=== PATIENT | female | born 1975 | race Caucasian/White ===

== ENCOUNTER 2019-08-23 21:41 | Inpatient (IN) | payer OTHER, SELFPAY ==
--- NOTE | ~2019-08-23 | XR_ITS ---
EXAMINATION: XR chest 1V portable 08/23/2019 22:09 INDICATION: Altered mental status. Overdose. PROCEDURE: 2 view chest COMPARISON: No prior studies for comparison. FINDINGS: The lungs are clear. The cardiomediastinal silhouette is within normal limits. There are no pleural effusions. There is no pneumothorax suspected. IMPRESSION: 1: NO ACUTE CARDIOPULMONARY DISEASE. Reviewed, dictated and finalized at location A. RITY ALARM TECHNICIAN
[2019-08-23 21:40] VITALS: BP 138/66; PULSE 108; RESP 25; O2SAT 100
--- NOTE | 2019-08-23 21:43 | ED.OVERDOSE ---
HPI - Overdose General Chief Complaint: Overdose Stated Complaint: od Time Seen by Provider: 08/23/19 21:45 Source: EMS Mode of arrival: EMS Limitations: clinical condition History of Present Illness HPI Narrative: A 44 y/o female presents to the ED with c/o overdose. Per EMS, pt took Tylenol PM, Benadryl, and Melatonin tonight with EtOH to try and kill herself. EMS adds that she is going through a divorce and texted her tonight that it will all be over soon. EMS adds that the contacted them. On arrival to the scene, the patient told EMS that she bought a new bottle of Tylenol PM today, and EMS counted 32 remaining pills in a bottle of 100. En route EMS administered Narcan with no relief. According to EMS, the pt is lethargic in the ED and is not as alert compared to when EMS arrived to the patient's home. A complete HPI is limited due to the patient's clinical condition. MD complaint: intentional overdose Onset (ago): hour(s) (Tonight) Intent: suicide attempt How Overdose Was Discovered: called family/friend Context: Intentional Overdose: relationship problems Treatments Prior to Arrival: narcan Review of Systems Review of Systems: Narrative: A complete ROS is limited due to patient's clinical condition. All systems reviewed & are unremarkable except as noted in HPI and below Constitutional: Constitutional: Reports other (Lethargic) Psychiatric: Psychiatric: Reports other (Suicide attempt) [facility] Past Medical History Medical History (Updated 08/23/19 @ 23:53 by Edinson Romero DO) Medical history unknown Surgical History Surgical History (Updated 08/23/19 @ 21:55 by Mabel Corral) Surgical history unknown Social History Social History (Updated 08/23/19 @ 21:55 by Mabel Corral) Smoking status: Unknown if ever smoked Gender identity (if verbalized by the patient): Female Exam Narrative: Exam Narrative: APPEARANCE: Sleeping in bed but will awaken to verbal stimuli, will answer a few questions and fall back asleep EYES: PERRL HEENT: Normocephalic, atraumatic, OMM RESPIRATORY: No respiratory distress Clear to auscultation bilaterally with no rhonchi wheezing or rales. CARDIOVASCULAR: Tachycardic and regular without murmurs rubs or gallops. ABDOMINAL: Soft, nontender, nondistended, no rebound or guarding MUSCULOSKELETAl: Moves all extremities. No clubbing, cyanosis or edema. NEURO: Awake and alert x 3. Following commands, speech normal, no focal deficits SKIN:: Warm, dry. No rashes lesions or abrasions PSYCHIATRIC: Flat affect, positive suicidal ideation Course Course Emergency Course: After initial evaluation discussed with poison control. Recommend holding Acetadote until initial Tylenol level After initial Tylenol level came back positive Acetadote started Discussed with Dr. Mendez presentation work-up. Agrees with admission at this time Discussed with patient and family results of workup and diagnosis. Discussed need for admission. Patient and family understand and agree to current treatment plan Consultations Consultation #1: Discussed case with Senior Microstrategy Developer, Dr. Aalniz. They would like the patient to have a second liter of fluid. Date: 08/23/19 Time: 22:52 Consultation #2: Discussed case with hospitalist, Dr. Mendez. They accept admission. Date: 08/23/19 Time: 23:26 Vital Signs Vital signs: Vital Signs Pulse Rate 108 H 08/23/19 21:40 Respiratory Rate 25 H 08/23/19 21:40 Blood Pressure 138/66 08/23/19 21:40 Pulse Oximetry 100 08/23/19 21:40 Pulse Rate 104 H 08/23/19 23:16 Respiratory Rate 18 08/23/19 23:16 Blood Pressure 129/73 08/23/19 23:16 Pulse Oximetry 100 08/23/19 23:16 MDM - Overdose Lab Data Result diagrams: 08/23/19 22:03 08/23/19 22:02 Labs: Lab Results 08/23/19 08/23/19 08/23/19 Range/Units 22:02 22:02 22:02 WBC (4.5-10.0) K/mm3 RBC (4.2-5.4) M/mm3 Hgb (12.0-15.0) g/dL Hct (37.0
--- NOTE | 2019-08-23 21:51 | ECG_ITS ---
Measurements Intervals [place] Rate: 103 P: 77 MD: 147 QRS: 57 QRSD: 88 T: 46 QT: 269 QTc: 353 Interpretive Statements SINUS TACHYCARDIA BORDERLINE ST ABNORMALITY- ANTEROLAT/INF LEADS BORDERLINE ECG Electronically Signed On 08-24-2019 8:35:29 LIVESTOCK BUYER by J Luis Wen D.O.
[2019-08-23 22:10] LABS: Basophils Percent Auto 0.2 % (0.2-1.2); Eosinophils Absolute Auto 0.1 K/mm3 (0-0.3); Eosinophils Percent Auto 1.1 % (0-4.4); Hematocrit 39.7 % (37.0-47.0); Hemoglobin 13.1 g/dL (12.0-15.0); Immature Granulocyte Absolute 0.01 K/mm3 (0.00-0.031); Immature Granulocyte Percent A 0.2 % (0-0.5); Lymphocytes Absolute Auto 3.06 K/mm3 (0.9-3.2); Lymphocytes Percent Auto 53.9 % (18.3-44.2); Mean Corpuscular Hemoglobin 31.4 pg (26-34); Mean Corpuscular Volume 95.2 fl (80-100); Mean Platelet Volume 10.2 fl (7.4-10.4); Monocytes Absolute Auto 0.4 K/mm3 (0.1-0.6); Monocytes Percent Auto 6.2 % (2.6-8.5); Neutrophils Absolute Auto 2.2 K/mm3 (1.3-6.7); Neutrophils Percent Auto 38.4 % (45.5-73.1); Platelet Count Result 216 k/mm3 (150-375); Red Blood Count 4.17 M/mm3 (4.2-5.4); Red Cell Distribution Width 12.6 % (11.5-14.5); White Blood Count 5.7 K/mm3 (4.5-10.0)
[2019-08-23 22:15] LABS: Add Urine Microscopic? YES; Appearance Urine Clear (Clear); Bacteria Urine Trace /hpf; Bilirubin Urine Negative (Negative); Blood Urine 2+ (Negative); Color Urine Straw (Yellow); Glucose Urine UA Negative (Negative); Ketones Urine Trace mg/dL (Negative); Leukocyte Esterase Ur Negative LEU/UL (Negative); Mucus Urine Rare /lpf; Nitrate Urine Negative (Negative); Protein Urine Negative (Negative); Specific Grav Ur 1.014 (1.001-1.035); Squamous Epithelial Cell Urine Moderate /hpf (Few); Urobilinogen Urine Negative mg/dL (<2.0); WBC Urine 0-3 /hpf
[2019-08-23 22:19] LABS: Alveolar/Arterial O2 Gradient 4.9 mmHg; Base Excess ABG -5.6 mEq/l (+/-2.0); Fractional Inspired Oxygen 21 %; HCO3 ABG 18.9 mEq/l (22.0-26.0); Oxygen Saturation ABG 97.6 % (95.0-100.0); Oxyhemoglobin 95.5 % THb (90.0-100.0); PCO2 ABG 34.1 mmHg (35.0-45.0); PO2 FiO2 Ratio Arterial Blood 4.95 %; Total Hemoglobin 14.1 g/dL (12.0-18.0); pH ABG 7.361 (7.350-7.450)
[2019-08-23 22:20] LABS: Device ROOM AIR; Modified Allen's Test Pass; Site Drawn LEFT RADIAL
[2019-08-23 22:20] LABS: Prothrombin Time 12.8 Seconds (11.1-14.7)
[2019-08-23 22:21] LABS: Partial Thromboplastin Time 23.7 SECONDS (22.3-36.8)
[2019-08-23 22:24] LABS: Alanine Aminotransferase 19 U/L (4-35); Albumin Level 4.5 g/dL (3.5-5.1); Alkaline Phosphatase 40 U/L (38-126); Aspartate Amino Transferase 21 U/L (14-36); Bilirubin,Total 0.5 mg/dL (0.2-1.3); Blood Urea Nitrogen 12 mg/dL (7-17); Calcium 8.6 mg/dL (8.4-10.2); Carbon Dioxide 22 mmol/L (22-30); Chloride 104 mmol/L (98-107); Estimated Glomerular Filt Rate > 60; Glucose 93 mg/dL (65-105); Potassium 3.4 mmol/L (3.4-5.0); Sodium 143 mmol/L (137-145)
[2019-08-23] MEDS: SODIUM CHLORIDE 0.9% IV 1,000 ML 999 ML IV CONT (22:24)
--- NOTE | 2019-08-23 22:26 | PC.NURSE ---
Pt arrived to ED via EMS from home with c/o of overdose. Per EMS pt is going through a divorce. Pt texted approx 1999 and stated that you don't have to worry about me anymore . went to check on pt and found her throwing up and crying. assumed that pt was just upset about the pending divorce so he left the room. About a half hour later went to check on pt and found her passed out. When pt arrived to ED she was only arousable to painful stimuli. Pt was able to state her name and what town she was in. @ 2149 called poison control and spoke with Inna. Per Inna the amount of Diphehydramine this pt took is enough to cause serious cardiac issues. Poison control would have to turn this case over to the Medical team and have them deal with this. Inna asked what labs were ordered and wanted a Mag, Rabdo and lactic added on. I informed Dr. Romero of this. Inna also stated to have Q4 EKGs done and keep pt on classroom monitor. Every 4-6 hours we should draw a CMP and a acetaminophen level. Also monitor pts temp as pt can become hypothermic. Inna is faxing over the guidelines for the acetaminophen levels. Case # [id number]
[2019-08-23 22:29] LABS: Ethanol 39 mg/dL (<10); Salicylate 1.2 mg/dL (2-20)
[2019-08-23 22:36] LABS: Acetaminophen 244 ug/mL (10-30)
[2019-08-23 22:37] LABS: Amphetamine Screen Urine Negative (Negative); Barbiturate Screen Urine Negative (Negative); Benzodiazepines Screen Urine Negative (Negative); Cannabinoid Screen Urine Negative (Negative); Cocaine Screen Urine Negative (Negative); Methadone Screen Urine Negative (Negative); Opiate Screen Urine Negative (Negative); Phencyclidine Screen Urine Negative (Negative)
[2019-08-23 22:46] LABS: Creatine Kinase 62 U/L (30-135); Magnesium 2.1 mg/dL (1.6-2.3)
[2019-08-23 22:47] LABS: Lactic Acid Reflex 4.3 mmol/L (0.7-2.1)
--- NOTE | 2019-08-23 22:52 | PC.NURSE ---
called pharmacy to verify they saw pts order. Rony stated he was in IV room now.
[2019-08-23] MEDS: WATER IVPB (23:10)
[2019-08-23] MEDS: DEXTROSE 5% IVPB (23:10)
[2019-08-23] MEDS: ACETYLCYSTEINE IVPB (23:10)
[2019-08-23 23:16] VITALS: BP 129/73; PULSE 104; RESP 18; O2SAT 100
--- NOTE | 2019-08-23 23:16 | PC.NURSE ---
report taken from keyla guzman at this time.
[2019-08-23] MEDS: LACTATED RINGERS 1,000 ML 999 ML IV CONT (23:33)
--- NOTE | 2019-08-23 23:50 | PC.NURSE ---
POISON CONTROL CALLED FOR UPDATE AND LAB RESULTS AT THIS TIME.
[2019-08-24] VITALS (17 sets, daily range): BP systolic 103–153; BP diastolic 59–88; PULSE 62–101; RESP 12–21; TEMP 36.4–36.8; O2SAT 94–100; BMI 19.9
[2019-08-24] MEDS: SODIUM CHLORIDE 0.9% IV 1,000 ML 125 ML IV CONT ×2 (00:36→10:17)
[2019-08-24 01:32] LABS: Reflex Lactic Acid Yes or No Add Lactic
--- NOTE | 2019-08-24 01:55 | ADMGEN ---
This patient, Luisa Craig, was admitted to Intensive Care Unit-3. Patient/family oriented to hospital policies and general routines including ID bracelet, bed and alarms, visiting hours, pain management, procedures, bathroom and other care routines, personal items, smoking policy, room service/diet, and visiting hours. Valuables list has been completed. Information on how to activate the Rapid Response Team has been discussed. Patient/Family are encouraged to report perceived risks to care and to ask questions if they do not understand what they are told or what they should do.
--- NOTE | 2019-08-24 02:00 | PM.IMHP ---
H&P: HPI History of Present Illness Chief complaint: Intentional overdose on Tylenol p.m. Narrative: Date and time of patient contact: 08/24/2019 at 2:10 a.m. Luisa Craig is a 44 year old female with no significant past medical history presented to the ER after overdosing on Tylenol p.m.and alcohol an attempt dry to kill herself. ?It will all be over soon.? The patient had drank 3 beers. The patient's contacted EMS. The patient had bought bottle of Tylenol p.m. about 3 weeks ago. She had been taking 1 or 2 tablets a night for the last couple of weeks. Sixty-eight tablets in total were missing from the bottle but the patient is unsure exactly how many tablets she took this evening. She does not know exactly what time she took the medications. The patient received Narcan in the field any improvement in her condition. She was evidently lethargic and was less alert when she arrived to the ER. However the patient seems to be back to normal mental status on arrival to the ICU. The patient has been having some nausea and vomiting since arrival to the ER. She does not think she has thrown up any pill fragments. She reports that she is otherwise in good health. She has never been in the hospital except for for the of her children. The patient reports that her of 23 years has been cheating with another woman. Her recently told her within the last couple of weeks that he wants a divorce. Per her report she found out that her was still talking to the other woman. It sounds as if her and her had a confrontation which tipped her over the edge and she subsequently tried to kill herself. She states that she is on fluoxetine for anxiety but has never had any significant problems with depression prior to this. Review of Systems Review of Systems: Narrative: Except as documented in the HPI, all other systems were reviewed and are negative. [facility] Past Medical History Medical History (Updated 08/24/19 @ 23:52 by Farzana Mendez DO) Anxiety Surgical History Surgical History (Updated 08/24/19 @ 02:42 by Farzana Mendez DO) No pertinent past surgical history Family History Family History (Updated 08/24/19 @ 02:43 by Farzana Mendez DO) Father , in his 70s Lung cancer Esophageal cancer Mother Fibromyalgia Sibling , of complications of cystic fibrosis and diabetes Cystic fibrosis Diabetes mellitus Social History Social History (Updated 08/24/19 @ 02:50 by Farzana Mendez DO) Social History: Primary care physician: Dr. Pavel Valdez Smoking status: Former smoker Additional smoking assessment comments: She states she only smokes 1-2 cig rarely Alcohol intake: current Drinks per week: 3 Alcohol use details: She drinks 2 or 3 alcoholic beverages a couple times of month. Substance use: never Living arrangements: with family Additional living arrangements comments: She lives with her but is currently going through divorce. She has 2 daughters 1 of which is 20 years old the other one is 15 years old. 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 Gender identity (if verbalized by the patient): Female Spiritual care concerns: No Agree to blood products: Yes Meds Home Medications and Allergies Home Medications Medication Instructions Recorded Confirmed Type fluoxetine 10 mg PO DAILY 08/24/19 08/24/19 History Allergies Allergy/AdvReac Type Severity Reaction Status Date / Time No Known Allergies Allergy Verified 08/24/19 01:15 Vital Signs Vital Signs - 24 hr 08/23/19 21:40 08/23/19 23:16 08/24/19 00:28 Temperature 97.6 F Pulse Rate 108 H 104 H 101 H Respiratory Rate 25 H 18 18 Blood Pressure 138/66 129/73 114/76 Pulse Oximetry 100 100 100 08/24/19 00:51 08/24/19 01:36 Temperature Pulse Rate 90 85 Respiratory Rate
[2019-08-24 02:21] LABS: Lactic Acid 0.8 mmol/L (0.7-2.1)
[2019-08-24 02:22] LABS: Acetaminophen 113 ug/mL (10-30); Alanine Aminotransferase 19 U/L (4-35); Albumin Level 4.2 g/dL (3.5-5.1); Alkaline Phosphatase 23 U/L (38-126); Aspartate Amino Transferase 19 U/L (14-36); Bilirubin,Total 0.5 mg/dL (0.2-1.3); Blood Urea Nitrogen 7 mg/dL (7-17); Calcium 8.1 mg/dL (8.4-10.2); Carbon Dioxide 21 mmol/L (22-30); Chloride 104 mmol/L (98-107); Estimated CRCL calculation 144 ml/min; Estimated Glomerular Filt Rate > 60; Glucose 147 mg/dL (65-105); Potassium 3.7 mmol/L (3.4-5.0); Sodium 138 mmol/L (137-145)
[2019-08-24] MEDS: ONDANSETRON INJ 4 MG/2 ML VIAL IV PUSH (03:32)
[2019-08-24 05:15] LABS: Hematocrit 38.5 % (37.0-47.0); Hemoglobin 13.1 g/dL (12.0-15.0); Immature Granulocyte Absolute 0.01 K/mm3 (0.00-0.031); Immature Granulocyte Percent A 0.3 % (0-0.5); Lymphocytes Absolute Auto 0.71 K/mm3 (0.9-3.2); Lymphocytes Percent Auto 20.2 % (18.3-44.2); Mean Corpuscular Hemoglobin 31.1 pg (26-34); Mean Corpuscular Volume 91.4 fl (80-100); Mean Platelet Volume 9.9 fl (7.4-10.4); Monocytes Absolute Auto 0.1 K/mm3 (0.1-0.6); Monocytes Percent Auto 3.4 % (2.6-8.5); Neutrophils Absolute Auto 2.7 K/mm3 (1.3-6.7); Neutrophils Percent Auto 76.1 % (45.5-73.1); Platelet Count Result 202 k/mm3 (150-375); Red Blood Count 4.21 M/mm3 (4.2-5.4); Red Cell Distribution Width 12.3 % (11.5-14.5); White Blood Count 3.5 K/mm3 (4.5-10.0)
[2019-08-24 05:27] LABS: Alanine Aminotransferase 17 U/L (4-35); Albumin Level 4.1 g/dL (3.5-5.1); Alkaline Phosphatase 35 U/L (38-126); Aspartate Amino Transferase 18 U/L (14-36); Bilirubin,Total 0.6 mg/dL (0.2-1.3); Blood Urea Nitrogen 6 mg/dL (7-17); Calcium 8.3 mg/dL (8.4-10.2); Carbon Dioxide 21 mmol/L (22-30); Chloride 102 mmol/L (98-107); Estimated CRCL calculation 111 ml/min; Estimated Glomerular Filt Rate > 60; Glucose 133 mg/dL (65-105); Potassium 3.6 mmol/L (3.4-5.0); Sodium 135 mmol/L (137-145)
--- NOTE | 2019-08-24 09:51 | ECG_ITS ---
Measurements Intervals [place] Rate: 64 P: 71 CT: 157 QRS: 28 QRSD: 83 T: 40 QT: 390 QTc: 403 Interpretive Statements SINUS RHYTHM NORMAL ECG Electronically Signed On 08-24-2019 17:28:07 TELEVISION INSTALLER HELPER by J Luis Wen D.O.
[2019-08-24] MEDS: FLUOXETINE HCL 10 MG CAPSULE PO (10:17)
--- NOTE | 2019-08-24 12:16 | WPDCNINT ---
Assessment and Plan Assessment and plan (1) Acetaminophen overdose: Code(s): T39.1X1A - Poisoning by 4-Aminophenol derivatives, accidental (unintentional), initial encounter Status: Acute Assessment and Plan: She has been getting IV Mucomyst and will finish the dose at around 7:00 p.m. today. Poison control has been called multiple times and updated about her clinical and biochemical status. Tylenol level will be drawn 2 hours before finishing IV Mucomyst. Her LFTs have been within normal range. She is asymptomatic as well with no symptoms of nausea and vomiting and right upper quadrant pain. If her Tylenol level remains elevated at the end of her IV Mucomyst dosing schedule that and will continue IV Mucomyst until Tylenol level becomes within acceptable range. (2) Diphenhydramine overdose: Code(s): T45.0X1A - Poisoning by antiallergic and antiemetic drugs, accidental (unintentional), initial encounter Status: Acute Assessment and Plan: She does not have any arrhythmias on telemetry. Frequent EKGs. (3) Suicidal ideation: Code(s): R45.851 - Suicidal ideations Status: Acute Assessment and Plan: She is on one-to-one observation. Psych/crisis team will evaluate her once she is cleared from medical perspective which will likely happen tomorrow. She will likely need inpatient psych admission. (4) Anxiety and depression: Code(s): F41.9 - Anxiety disorder, unspecified; F32.9 - Major depressive disorder, single episode, unspecified Status: Acute Assessment and Plan: Continue fluoxetine. Psych/crisis team will evaluate the patient for likely admission into a psych facility. Additional Plan If she remained hemodynamically stable and finishes off her IV Mucomyst dosing then she can potentially be cleared from medical perspective him. Critical care time spent 33 minutes Due to a high probability of clinically significant, life threatening deterioration, the patient required my highest level of preparedness to intervene emergently and I personally spent this critical care time directly and personally managing the patient. This critical care time included obtaining a history; examining the patient; pulse oximetry; ordering and review of studies; arranging urgent treatment with development of a management plan; evaluation of patient's response to treatment; frequent reassessment; and discussions with other providers. It was exclusive of separately billable procedures and treating other patients and teaching time. Please see Assessment and Plan section and the rest of the note for further information on patient assessment and treatment. Assistant Golf Professional Consult Note Consult date: 08/24/19 Time Seen: 07:24 HPI: Luisa Craig is a 44 year old female With past medical history of depression who was brought in here to the ED after she over does with Tylenol p.m. and alcohol. S put the patient she has been having worsening depression recently. She has been having some family disagreement with her and had an argument yesterday. She took Tylenol p.m. and as per the 63 tablets were missing. She took some alcohol as well. She was not too sure what time and how much exactly the cheek. called EMS. She was lethargic in the ED. She received Narcan from EMS with no significant improvement in her symptoms. she was complaining of nausea and vomiting in the ED. She denied have any significant symptoms like chest pain shortness of breath fever chills night sweats tingling and numbness sensation headache which will symptoms abdominal pain nausea and vomiting. She was evaluated the ED. She was started on IV Mucomyst with Tylenol level trending down. Review of Systems Review of Systems: Narrative: A comprehensive review of systems has been reviewed with the patient and most of the symptoms are negative except the one's mentioned above in HPI.
[2019-08-24 17:17] LABS: Acetaminophen < 10 ug/mL (10-30)
[2019-08-24 17:21] LABS: Alanine Aminotransferase 15 U/L (4-35); Albumin Level 3.6 g/dL (3.5-5.1); Alkaline Phosphatase 35 U/L (38-126); Aspartate Amino Transferase 15 U/L (14-36); Bilirubin,Total 0.5 mg/dL (0.2-1.3); Blood Urea Nitrogen 4 mg/dL (7-17); Calcium 8.4 mg/dL (8.4-10.2); Carbon Dioxide 22 mmol/L (22-30); Chloride 105 mmol/L (98-107); Estimated CRCL calculation 91 ml/min; Estimated Glomerular Filt Rate > 60; Glucose 105 mg/dL (65-105); Potassium 3.2 mmol/L (3.4-5.0); Sodium 138 mmol/L (137-145)
[2019-08-25] VITALS (8 sets, daily range): BP systolic 105–127; BP diastolic 57–83; PULSE 58–98; RESP 13–20; TEMP 36.8–36.9; O2SAT 98–99
[2019-08-25 08:19] LABS: Blood Urea Nitrogen 7 mg/dL (7-17); Calcium 9.1 mg/dL (8.4-10.2); Carbon Dioxide 24 mmol/L (22-30); Chloride 104 mmol/L (98-107); Estimated CRCL calculation 92 ml/min; Estimated Glomerular Filt Rate > 60; Glucose 88 mg/dL (65-105); Potassium 3.5 mmol/L (3.4-5.0); Sodium 140 mmol/L (137-145)
--- NOTE | 2019-08-25 12:21 | WPDINTPN ---
Progress Note: A&P Assessment and Plan (1) Acetaminophen overdose: Qualifiers: Encounter type: initial encounter Injury intent: intentional self-harm Qualified Code(s): T39.1X2A - Poisoning by 4-Aminophenol derivatives, intentional self-harm, initial encounter Code(s): T39.1X1A - Poisoning by 4-Aminophenol derivatives, accidental (unintentional), initial encounter Status: Acute Assessment and Plan: She has finished her IV Mucomyst course yesterday. Tylenol level trended down from 244 to <10. Poison control has been called multiple times and updated about her clinical and biochemical status. Her LFTs have been within normal range. She is asymptomatic as well with no symptoms of nausea and vomiting and right upper quadrant pain. (2) Diphenhydramine overdose: Qualifiers: Encounter type: initial encounter Injury intent: intentional self-harm Qualified Code(s): T45.0X2A - Poisoning by antiallergic and antiemetic drugs, intentional self-harm, initial encounter Code(s): T45.0X1A - Poisoning by antiallergic and antiemetic drugs, accidental (unintentional), initial encounter Status: Acute Assessment and Plan: She does not have any arrhythmias on telemetry. Frequent EKGs. (3) Suicidal ideation: Code(s): R45.851 - Suicidal ideations Status: Acute Assessment and Plan: She is on one-to-one observation. Psych/crisis team has evaluated the patient since she has been cleared from medical perspective. She will need inpatient psych admission and will be transferred once a bed is available.. (4) Anxiety and depression: Code(s): F41.9 - Anxiety disorder, unspecified; F32.9 - Major depressive disorder, single episode, unspecified Status: Acute Assessment and Plan: Continue fluoxetine. She needs inpatient psych care and will be transferred once a bed is available.. Additional Plan She is cleared from medical perspective. She will be transferred to inpatient psychiatry unit once a bed is available. She will be downgraded to the floor status as well. Subjective Date/time seen: 08/25/19 12:21 She has finished her IV Mucomyst protocol yesterday. Tylenol level trended down from 244 to <10. Her LFT remained stable. She remained asymptomatic. Hemodynamics are stable as well. Review of Systems Review of Systems: All systems reviewed & are unremarkable except as noted in HPI and below Exam Narrative: Exam Narrative: General awake and alert not in acute distress Eyes PERRLA normal conjunctiva no discharge HEENT no discharge Neck supple dull tenderness no deformity JVD not elevated CVS S1-S2 no murmur Respiratory no wheezes or crepitation respiration nonlabored GI soft nontender nondistended no hepatosplenomegaly Chest wall no tenderness or deformity Back nontender no deformity WOUND/OSTOMY NURSE alert oriented x3 and grossly nonfocal neurological exam Psychiatric cooperative appropriate mood and affect Musculoskeletal normal range of motion or joint swelling no rashes Extremities no edema Objective Data Vital Signs Vital Signs: Vital Signs - 24 hr 08/24/19 14:00 08/24/19 16:00 08/24/19 18:00 Temperature Pulse Rate 86 79 88 Respiratory Rate 14 18 18 Blood Pressure 125/67 124/81 Pulse Oximetry 97 98 99 08/24/19 19:30 08/24/19 20:00 08/24/19 22:00 Temperature 36.7 C Pulse Rate 78 75 62 Respiratory Rate 15 Blood Pressure 118/73 Pulse Oximetry 08/24/19 22:15 08/25/19 00:00 08/25/19 02:00 Temperature Pulse Rate 62 60 59 L Respiratory Rate 15 18 16 Blood Pressure 103/59 L 110/67 114/83 Pulse Oximetry 94 99 08/25/19 04:00 08/25/19 06:00 08/25/19 07:59 Temperature 36.8 C 36.9 C Pulse Rate 58 L 60 98 Respiratory Rate 17 13 20 Blood Pressure 108/75 105/57 L Pulse Oximetry 99 98 08/25/19 08:00 Temperature Pulse Rate 73 Respiratory Rate Blood Pressure Pulse Oximetry
[2019-08-25] MEDS: FLUOXETINE HCL 10 MG CAPSULE PO (14:15)
--- NOTE | 2019-08-25 16:56 | PM.IMPN ---
Progress Note: A&P Assessment and Plan (1) Acetaminophen overdose: Qualifiers: Encounter type: initial encounter Injury intent: intentional self-harm Qualified Code(s): T39.1X2A - Poisoning by 4-Aminophenol derivatives, intentional self-harm, initial encounter Code(s): T39.1X1A - Poisoning by 4-Aminophenol derivatives, accidental (unintentional), initial encounter Status: Acute Assessment and Plan: Patient is on Mucomyst IV. Her Tylenol level has improved down to down to 113. Will repeat serial CMP and Tylenol level every 6 hours until normal. Await further recommendations from poison Control. 08/25/19 16:56 Patient is a 39-year-old female after having command with her patient tried to commit suicide by taking several tablets of Tylenol, Benadryl and alcohol patient was brought emergency department by EMS patient was quite lethargic atenolol level was 245 patient was started on Mucomyst and poison Control Center was called and monitor in ICU and protocol was followed, today patient started on level is less than 10 patient is clinically stable patient is seen by crisis team recommending the patient will benefit from inpatient psychiatry care and patient has agreed with plan awaiting bed available at the psych patel, and present time patient denies any complaint abdominal pain nausea or vomiting fever or chills, her mother is present in the room and patient is being observed one-to-one (2) Diphenhydramine overdose: Qualifiers: Encounter type: initial encounter Injury intent: intentional self-harm Qualified Code(s): T45.0X2A - Poisoning by antiallergic and antiemetic drugs, intentional self-harm, initial encounter Code(s): T45.0X1A - Poisoning by antiallergic and antiemetic drugs, accidental (unintentional), initial encounter Status: Acute Assessment and Plan: Patient is complaining of a dry mouth. She has been having some nausea and vomiting. Her EKG and telemetry demonstrate no evidence of cardiac arrhythmia. Will continue to monitor telemetry. (3) Suicidal ideation: Code(s): R45.851 - Suicidal ideations Status: Acute Assessment and Plan: Patient has been admitted to the ICU with a safety analyst at bedside. Patient will need evaluation by crisis once medically stable. Time Spent With Patient Time with patient: 15 - 25 minutes Subjective Date/time seen: 08/25/19 16:56 Patient is a 39-year-old female after having command with her patient tried to commit suicide by taking several tablets of Tylenol, Benadryl and alcohol patient was brought emergency department by EMS patient was quite lethargic atenolol level was 245 patient was started on Mucomyst and poison Control Center was called and monitor in ICU and protocol was followed, today patient started on level is less than 10 patient is clinically stable patient is seen by crisis team recommending the patient will benefit from inpatient psychiatry care and patient has agreed with plan awaiting bed available at the psych patel, and present time patient denies any complaint abdominal pain nausea or vomiting fever or chills, her mother is present in the room and patient is being observed one-to-one Review of Systems Review of Systems: All systems reviewed & are unremarkable except as noted in HPI and below Exam Const: General: comfortable and no acute distress HENMT: General nose exam: Normal nares present Mouth: Yes moist mucous membranes Eyes: General: appearance normal, both eyes and all related structures Sclera: sclerae normal Neck: Neck: supple Resp: Effort & Inspection: normal respiratory effort Auscultation: clear to auscultation bilaterally Cardio: Rate: regular rate Rhythm: regular rhythm GI: Auscultation: normal bowel sounds Other: Nontender right upper quadrant Skin: General skin exam: normal color and no rashes or lesions noted Neuro: Speech: normal speech Sensory Exam:
[2019-08-26 05:43] VITALS: BP 115/71; PULSE 76; RESP 14; O2SAT 99
[2019-08-26 08:00] VITALS: BP 135/79; PULSE 72; RESP 18; TEMP 37.2; O2SAT 100
[2019-08-26] MEDS: FLUOXETINE HCL 10 MG CAPSULE PO (09:29)
[2019-08-26 10:18] LABS: Hematocrit 43.8 % (37.0-47.0); Hemoglobin 14.4 g/dL (12.0-15.0); Mean Corpuscular HGB Conc 32.9 g/dl (32-36); Mean Corpuscular Hemoglobin 31.2 pg (26-34); Mean Platelet Volume 10.3 fl (7.4-10.4); Platelet Count Result 209 k/mm3 (150-375); Red Blood Count 4.61 M/mm3 (4.2-5.4); Red Cell Distribution Width 12.9 % (11.5-14.5); White Blood Count 3.6 K/mm3 (4.5-10.0)
[2019-08-26 10:31] LABS: Blood Urea Nitrogen 13 mg/dL (7-17); Calcium 9.1 mg/dL (8.4-10.2); Carbon Dioxide 28 mmol/L (22-30); Chloride 98 mmol/L (98-107); Estimated CRCL calculation 88 ml/min; Estimated Glomerular Filt Rate > 60; Glucose 95 mg/dL (65-105); Potassium 3.1 mmol/L (3.4-5.0); Sodium 140 mmol/L (137-145)
--- NOTE | 2019-08-26 11:05 | PHAR ---
The patient's home med of NORETHINDRONE/ETHINYL ESTRADIOL 1MG/0.02 MG ORAL CONTRACEPTIVE has been verified.
[2019-08-26 13:01] VITALS: BMI 19.1
--- NOTE | 2019-08-26 13:44 | PHAR ---
The patient's home med of NORETHINDRONE/ETHINYL ESTRADIOL 1MG/0.02 MG ORAL CONTRACEPTIVE has been verified.
--- NOTE | 2019-08-26 14:47 | PM.IMPN ---
Progress Note: A&P Assessment and Plan (1) Acetaminophen overdose: Qualifiers: Encounter type: initial encounter Injury intent: intentional self-harm Qualified Code(s): T39.1X2A - Poisoning by 4-Aminophenol derivatives, intentional self-harm, initial encounter Code(s): T39.1X1A - Poisoning by 4-Aminophenol derivatives, accidental (unintentional), initial encounter Status: Acute Assessment and Plan: Patient is on Mucomyst IV. Her Tylenol level has improved down to down to 113. Will repeat serial CMP and Tylenol level every 6 hours until normal. Await further recommendations from poison Control. 08/26/19 14:47 Patient is a 39-year-old female after having command with her patient tried to commit suicide by taking several tablets of Tylenol, Benadryl and alcohol patient was brought emergency department by EMS patient was quite lethargic atenolol level was 245 patient was started on Mucomyst and poison Control Center was called and monitor in ICU and protocol was followed, today patient started on level is less than 10 patient is clinically stable patient is seen by crisis team recommending the patient will benefit from inpatient psychiatry care and patient has agreed with plan awaiting bed available at the psych [facility], and present time patient denies any complaint abdominal pain nausea or vomiting fever or chills, patient is awaiting placement to psych pat[facility] (2) Diphenhydramine overdose: Qualifiers: Encounter type: initial encounter Injury intent: intentional self-harm Qualified Code(s): T45.0X2A - Poisoning by antiallergic and antiemetic drugs, intentional self-harm, initial encounter Code(s): T45.0X1A - Poisoning by antiallergic and antiemetic drugs, accidental (unintentional), initial encounter Status: Acute Assessment and Plan: Patient is complaining of a dry mouth. She has been having some nausea and vomiting. Her EKG and telemetry demonstrate no evidence of cardiac arrhythmia. Will continue to monitor telemetry. (3) Suicidal ideation: Code(s): R45.851 - Suicidal ideations Status: Acute Assessment and Plan: Patient has been admitted to the ICU with a system safety manager at bedside. Patient is seen by crisis team recommending patient will benefit from inpatient psychiatry care Subjective Date/time seen: 08/26/19 14:47 Patient is a 39-year-old female after having command with her patient tried to commit suicide by taking several tablets of Tylenol, Benadryl and alcohol patient was brought emergency department by EMS patient was quite lethargic atenolol level was 245 patient was started on Mucomyst and poison Control Center was called and monitor in ICU and protocol was followed, today patient started on level is less than 10 patient is clinically stable patient is seen by crisis team recommending the patient will benefit from inpatient psychiatry care and patient has agreed with plan awaiting bed available at the psych [facility], and present time patient denies any complaint abdominal pain nausea or vomiting fever or chills, patient is awaiting placement to psych [facility] Review of Systems Review of Systems: All systems reviewed & are unremarkable except as noted in HPI and below Exam Const: General: comfortable and no acute distress HENMT: General nose exam: Normal nares present Mouth: Yes moist mucous membranes Eyes: General: appearance normal, both eyes and all related structures Sclera: sclerae normal Neck: Neck: supple Resp: Effort & Inspection: normal respiratory effort Auscultation: clear to auscultation bilaterally Cardio: Rate: regular rate Rhythm: regular rhythm Skin: General skin exam: normal color and no rashes or lesions noted Neuro: Speech: normal speech Sensory Exam: normal sensation Extrem: General: normal to inspection Psych: Affect: Anxious affect present Objective Data Vital Signs Vital Signs: Vital Signs - 24 hr
--- NOTE | 2019-09-20 09:45 | PM.DS ---
DS: Diagnosis Admitting Diagnosis Admitting Diagnosis: Poisoning by 4-Aminophenol derivatives, intentional self-harm, initial encounter Discharge Diagnosis (1) Surgical history unknown: Code(s): Z78.9 - Other specified health status (2) Acetaminophen overdose: Qualifiers: Encounter type: initial encounter Injury intent: intentional self-harm Qualified Code(s): T39.1X2A - Poisoning by 4-Aminophenol derivatives, intentional self-harm, initial encounter Code(s): T39.1X1A - Poisoning by 4-Aminophenol derivatives, accidental (unintentional), initial encounter Status: Acute (3) Diphenhydramine overdose: Qualifiers: Encounter type: initial encounter Injury intent: intentional self-harm Qualified Code(s): T45.0X2A - Poisoning by antiallergic and antiemetic drugs, intentional self-harm, initial encounter Code(s): T45.0X1A - Poisoning by antiallergic and antiemetic drugs, accidental (unintentional), initial encounter Status: Acute DS: Summary Hospital Course Reason for hospitalization: Patient is a 39-year-old female after having command with her patient tried to commit suicide by taking several tablets of Tylenol, Benadryl and alcohol patient was brought emergency department by EMS patient was quite lethargic atenolol level was 245 patient was started on Mucomyst and poison Control Center was called and monitor in ICU and protocol was followed, today patient started on level is less than 10 patient is clinically stable patient is seen by crisis team recommending the patient will benefit from inpatient psychiatry care and patient has agreed with plan awaiting bed available at the [facility], and present time patient denies any complaint abdominal pain nausea or vomiting fever or chills, patient is awaiting placement to psych [facility] Hospital Course: Patient is a 39-year-old female after having command with her patient tried to commit suicide by taking several tablets of Tylenol, Benadryl and alcohol patient was brought emergency department by EMS patient was quite lethargic atenolol level was 245 patient was started on Mucomyst and poison Control Center was called and monitor in ICU and protocol was followed, today patient started on level is less than 10 patient is clinically stable patient is seen by crisis team recommending the patient will benefit from inpatient psychiatry care and patient has agreed with plan awaiting bed available at the psych [facility], and present time patient denies any complaint abdominal pain nausea or vomiting fever or chills, patient is awaiting placement to psych [facility], patient will be transferred once bed is available. Status at Discharge Functional status at discharge: independent ambulation Overall status at discharge: patient is back to baseline Time Spent with Patient Time attestation: Total time spent providing and/or coordinating discharge services: Time spent: Greater than 30 minutes Exam Const: General: comfortable and no acute distress HENMT: General nose exam: Normal nares present Mouth: Yes moist mucous membranes Eyes: General: appearance normal, both eyes and all related structures Sclera: sclerae normal Neck: Neck: supple Resp: Effort & Inspection: normal respiratory effort Auscultation: clear to auscultation bilaterally Cardio: Rate: regular rate Rhythm: regular rhythm GI: Auscultation: normal bowel sounds Other: Nontender right upper quadrant Skin: General skin exam: normal color and no rashes or lesions noted Neuro: Speech: normal speech Sensory Exam: normal sensation Extrem: General: normal to inspection Discharge Plan Discharge Attending physician on discharge: Khurram Osborne Consulting providers: Renuka Savage ; J Luis Wen ; Chava Crowe Discharging Clinician: Khurram Osborne Patient Disposition: Psychiatric Hosp Discharge Instructions: Patient is being discharge to a psych patel Patient Instructions: Tomas
--- NOTE | 2019-10-02 09:18 | P.TS_ITS ---
Transfer Discharge Sum: Prov Provider Date of admission: 08/23/19 23:24 Primary care physician: Ricardo Valdez MD Admitting clinician: Farzana Mendez DO Consults: 08/23/19 23:26 Consult to Physician Routine Comment: Consulting Provider: Sera Alaniz Reason for consultation: ICU Has provider been notified: Yes DS: Diagnosis Admitting Diagnosis Admitting Diagnosis: Poisoning by 4-Aminophenol derivatives, intentional self- harm, initial encounter Transfer Discharge Sum: Med Medications Active and Home Medications: Home Medications norethindrone acetate 1 mg-ethinyl estradiol 20 mcg tablet 1 tablet PO DAILY #63 tablet 06/07/19 [Rx] fluoxetine 10 mg capsule 10 mg PO DAILY #30 cap 09/19/19 [Rx] Transfer Discharge Sum: Hosp Hospital Course Hospital course: Luisa Craig is a 44 year old female Patient is a 39-year- old female after having command with her patient tried to commit suicide by taking several tablets of Tylenol, Benadryl and alcohol patient was brought emergency department by EMS patient was quite lethargic atenolol level was 245 patient was started on Mucomyst and poison Control Center was called and monitor in ICU and protocol was followed, today patient started on level is less than 10 patient is clinically stable patient is seen by crisis team recommending the patient will benefit from inpatient psychiatry care and patient has agreed with plan awaiting bed available at the [facility], and present time patient denies any complaint abdominal pain nausea or vomiting fever or chills, patient is awaiting placement to psych [facility], patient been accepted for inpatient psychiatry care will transfer the patient Time Spent with Patient Time attestation: Total time spent providing and/or coordinating transfer services: Exam Const: General: no acute distress HENMT: General nose exam: Normal nares present Mouth: Yes moist mucous membranes Eyes: General: appearance normal, both eyes and all related structures Sclera: sclerae normal Neck: Neck: supple Resp: Effort & Inspection: normal respiratory effort Auscultation: clear to auscultation bilaterally Cardio: Rate: regular rate Rhythm: regular rhythm Skin: General skin exam: normal color Neuro: Speech: normal speech Sensory Exam: normal sensation Extrem: General: normal to inspection Psych: Affect: Anxious affect present
== END 2019-08-26 16:25 | DRG 918 ==
LOC: ANHED 23:53 → ANHICU 08-24 02:02
PROVIDERS: Internal Medicine Critical Care Medicine; Admitting Provider Internal Medicine; Emergency Provider Emergency Medicine; PCP Family Medicine; Visit Provider Family Medicine
DX: T39.1X2A Poisoning by 4-Aminophenol derivatives, intentional self-harm, initial encounter (principal); R45.851 Suicidal ideations; T45.0X2A Poisoning by antiallergic and antiemetic drugs, intentional self-harm, initial encounter; T39.1X1A Poisoning by 4-Aminophenol derivatives, accidental (unintentional), initial encounter; F41.9 Anxiety disorder, unspecified; F32.9 Major depressive disorder, single episode, unspecified
CPT/HCPCS: 36415; 36600; 51701; 71045; 80048; 80053; 80307; 81001; 81025; 82550; 82805; 83605; 83735; 85025; 85027; 85610; 85730; 87081; 93005; 96361; 96365; 99285; A9270; J0132; J2405; J7030; J7060; J7070; J7120

== ENCOUNTER 2020-03-27 15:37 | Outpatient (CLI) | payer OTHER, SELFPAY ==
--- NOTE | ~2020-03-27 | XR_ITS ---
EXAMINATION: XR shoulder LT min 2V DATE: 03/27/2020 16:06 INDICATION: Left shoulder pain. TECHNIQUE: 4 views of left shoulder were obtained. COMPARISON: None. FINDINGS: Bone alignment is normal. No fracture. Joint spaces are well maintained. There is mild scar ring at left lung apex. IMPRESSION: 1. Normal left shoulder. Reviewed, dictated and finalized at location A. IMPRESSION: 1. Normal left shoulder.
--- NOTE | ~2020-03-27 | XR_ITS ---
EXAMINATION: XR_CERV2-3V_CR DATE: 03/27/2020 16:05 INDICATION: Left shoulder pain. TECHNIQUE: 3 views of cervical spine were obtained. COMPARISON: None. FINDINGS: There is 6 degrees levocurvature of cervicothoracic spine. Vertebral body heights are patrick l. There is mildly decreased disc height at C6-C7. The facet joints are normal. No central canal sten osis or prevertebral soft tissue swelling. IMPRESSION: 1. Mild cervical spondylosis. Reviewed, dictated and finalized at location A.
== END 2020-03-27 15:38 | disposition home or self-care (01) ==
PROVIDERS: PCP Physician Assistant; Visit Provider Physician Assistant
DX: M25.519 Pain in unspecified shoulder (principal); M47.892 Other spondylosis, cervical region
CPT/HCPCS: 72040; 73030

== ENCOUNTER 2022-01-17 17:37 | Outpatient (CLI) | payer OTHER, SELFPAY ==
--- NOTE | ~2022-01-17 | XR_ITS ---
XR thoracic spine 3V DATE: 01/17/2022 18:04 INDICATION: Back pain. No injury. TECHNIQUE: AP, lateral, swimmer views COMPARISON: None FINDINGS: No fracture or bone destruction. The thoracic pedicles are intact. No paraspinal soft tissu e thickening. Minimal levoscoliosis of lower thoracic spine. Mild degenerative spurring. IMPRESSION: Minimal levoscoliosis of lower thoracic spine Mild degenerative spurring Reviewed, dictated and finalized at location B.
--- NOTE | ~2022-01-17 | XR_ITS ---
XR lumbar spine min 4V DATE: 01/17/2022 18:05 INDICATION: Low back pain TECHNIQUE: AP, bilateral oblique, lateral and coned lateral lumbosacral views COMPARISON: None FINDINGS: Normal alignment of the lumbar spine. No fracture or bone destruction, spondylolysis or spo ndylolisthesis. There is mild to moderate degenerative disc disease at L1-2 and L4-5 and mild degenerative disc disea se at L2-3 and L3-4. No fracture or bone destruction. The lumbar spine pedicles and included lower thoracic pedicles are i ntact. Normal sacroiliac joints. IMPRESSION: Mild to moderate degenerative disc disease of the lumbar spine Reviewed, dictated and finalized at location B.
== END 2022-01-17 17:38 | disposition home or self-care (01) ==
PROVIDERS: PCP Family Medicine; Visit Provider Physician Assistant
DX: M51.36 Other intervertebral disc degeneration, lumbar region (principal)
CPT/HCPCS: 72072; 72110

== ENCOUNTER 2022-07-01 08:55 | Outpatient (CLI) | payer OTHER, SELFPAY ==
--- NOTE | ~2022-07-01 | MM_ITS ---
EXAMINATION: MM screening [facility] BI w will HISTORY: Screening mammogram TECHNIQUE: Craniocaudal and mediolateral oblique 3-D tomosynthesis images were obtained and synthetic 2-D images were generated. CAD analysis was submitted and interpreted. COMPARISON: 07/19/2019, 07/13/2018 bilateral screening mammogram examinations BREAST PARENCHYMAL COMPOSITION: The breasts are heterogeneously dense, which may obscure small masses . FINDINGS: There is no evidence of suspicious mass, calcification, or architectural distortion to sugg est malignancy in either breast. There has been no suspicious interval change. IMPRESSION: 1. No mammographic evidence of malignancy. 2. Recommend routine screening mammography in one year. BI-RADS Category 1: Negative Reviewed, dictated and finalized at location A. IDE MACHINIST HELPER
== END 2022-07-01 08:56 | disposition home or self-care (01) ==
LOC: ANHIMG 08:56
PROVIDERS: PCP Physician Assistant; Visit Provider Physician Assistant
DX: Z12.31 Encounter for screening mammogram for malignant neoplasm of breast (principal)
CPT/HCPCS: 77063; 77067

== ENCOUNTER 2024-02-16 15:16 | Outpatient (CLI) | payer OTHER, SELFPAY ==
--- NOTE | ~2024-02-16 | MM_ITS ---
EXAMINATION: MM screening [facility] BI w will HISTORY: Screening TECHNIQUE: Craniocaudal and mediolateral oblique 3-D tomosynthesis images were obtained and synthetic 2-D images were generated. CAD analysis was submitted and interpreted. COMPARISON: No prior mammogram is available for comparison at this institution. BREAST PARENCHYMAL COMPOSITION: Dense: The breasts are heterogeneously dense, which may obscure small masses FINDINGS: There is no evidence of suspicious mass, calcification, or architectural distortion to sugg est malignancy in either breast. There has been no suspicious interval change. IMPRESSION: 1. No mammographic evidence of malignancy. 2. Recommend routine screening mammography in one year. BI-RADS Category 1: Negative Reviewed, dictated and finalized at location B.
== END 2024-02-16 15:17 | disposition home or self-care (01) ==
PROVIDERS: PCP Emergency Medicine; Visit Provider Emergency Medicine
DX: Z12.31 Encounter for screening mammogram for malignant neoplasm of breast (principal)
CPT/HCPCS: 77063; 77067

== ENCOUNTER 2025-04-04 08:21 | Outpatient (CLI) | payer OTHER, SELFPAY ==
--- NOTE | ~2025-04-04 | MM_ITS ---
EXAMINATION: MM screening [facility] BI w will HISTORY: Screening TECHNIQUE: Craniocaudal and mediolateral oblique 3-D tomosynthesis images were obtained and synthetic 2-D images were generated. CAD analysis was submitted and interpreted. COMPARISON: Comparison to multiple prior studies sequentially, with oldest reviewed study dated 07/13/2018. BREAST PARENCHYMAL COMPOSITION: Not dense: There are scattered areas of fibroglandular density. FINDINGS: There is no evidence of suspicious mass, calcification, or architectural distortion to suggest malignancy in either breast. There has been no suspicious interval change. IMPRESSION: 1. No mammographic evidence of malignancy. 2. Recommend routine screening mammography in one year. BI-RADS Category 1: Negative Reviewed, dictated and finalized at location C.
--- OUTSIDE RECORDS SUMMARY | 2025-04-04 08:28 | XMS_ITS | Patient Health Record ---
Author Organization [facility] [employer] Address [address] [facility] [address] [place] [address] Support Name Relationship Address Phone KEVIN KHAN Guarantor Unknown Reason For Referral No Information Medications Medication SIG (Take, Route, Frequency, Duration) Notes Start Date End Date Status Cymbalta 60 MG Capsule Delayed Release Particles Oral Ac tive Remeron 15 MG Tablet Oral Active Cymbalta 30 MG Capsule Delayed Release Particles Oral Ac tive Plan Of Treatment No Information
--- OUTSIDE RECORDS SUMMARY | 2025-04-04 08:28 | XMS_ITS | Clinical Summary ---
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 Gender Identity Not on file Sexual Orientation Not on file Plan of Treatment Health Maintenance Due Date Last Done Comments Cervical Cancer Screening Pa p Smear (Age 30 to 64) Every 3 Years 1974 Colorectal Cancer Screening Colonoscopy (10 Years) 1974 Annual Physical 1977 Hepatitis C 02/24/1992 DTaP, Tdap and Td Vaccines ( 1 - Tdap) 1993 Hepatitis B Vaccines (1 of 3 - 19+ 3-dose series) 1993 Cervical Cancer Screening Pa p with HPV Testing (Age 30 to 64) Every 5 Years 02/24/2004 Cervical Cancer Screening with HPV 02/24/2004 Mammogram Screening 2014 Pneumococcal Vaccine: 50+ Ye ars (1 of 1 - PCV) 02/24/2024 Zoster Vaccines (1 of 2) 02/24/2024 COVID-19 Vaccine (1 - 2023-2 5 season) 2025 Meningococcal B Vaccine Aged Out No l onger eligible based on patient's age to complete this topic Meningococcal Vaccine Aged Out No kanchan gera eligible based on patient's age to complete this topic RSV Immunizations Under 20 Months Aged Out No longer eligible based on patient's age to complete this topic Insurance [employer] Care Teams Car Repairer Relationship Specialty Start Date End Date Patrice Trujillo PA [address] [place] [address] Nurse Practitioner PHYSICIAN TURNTABLE ENGINEER 06/02/20
--- OUTSIDE RECORDS SUMMARY | 2025-04-04 08:28 | XMS_ITS | Clinical Summary ---
Author Organization [facility] [employer] Address [address] [place] [address] Care Team Providers Care Fha Underwriter Name Role Phone Frederic Valdez MD Primary Care Provider [phone] Source Comments [facility] [employer],non-owned Affiliates and Associated Physician Practices is amultiple site organization consisting of ambulatory clinics and hospital sitesin [place] and [place]. This disclosure is being madepursuant to the Care Everywhere program and may not contain all information available regarding this patient. Last updated 18.[facility] [employer] Allergies No known active allergies Medications * Be aware that medications may not be up to date on this document. Alwaysverify current medications with the patient. 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 Gender Identity Not on file Sexual Orientation Not on file Last Filed Vital Signs Vital Sign Reading Time Taken Comments Blood Pressure 123/69 09/14/2020 9:01 AM CDT Pulse 87 09/14/2020 9:01 AM CDT Temperature 36.6 C (97.9 F) 09/14/2020 9:01 AM CDT Respiratory Rate - - Oxygen Saturation 100% 09/14/2020 9:01 AM CDT Inhaled Oxygen Concentration - - Weight 66.7 kg (147 lb) 09/14/2020 9:01 AM CDT Height 157.5 cm (5' 2) 09/14/2020 9:01 AM CDT Body Mass Index 26.89 09/14/2020 9:01 AM CDT Plan of Treatment Health Maintenance Due Date Last Done Comments COLOGUARD (AGES 45-75) - COL ON CA SCREENING 1974 COLON MONITORING 1974 COLONOSCOPY - COLON CA SCREENING 1974 CT COLONOGRAPHY - COLON CA SCREENING 1974 Colorectal Cancer Screening 1974 FIT - COLON CA SCREENING 1974 FLEX SIG - COLON CA SCREENING 1974 LIPID TESTING 1974 MAMMOGRAM 1974 HIV SCREENING 1989 HEPATITIS C SCREENING 02/19/1992 DTAP/TDAP/TD VACCINES (1 - Tdap) 1993 HEPATITIS B VACCINE (1 of 3 - 19+ 3-dose series) 1993 SCREENING FOR DIABETES 09/14/2020 PNEUMOCOCCAL VACCINE 50+ (1 of 1 - PCV) 02/24/2024 ZOSTER VACCINE (1 of 2) 02/24/2024 DEPRESSION SCREENING 07/03/2024 COVID-19 VACCINE (1 - 2023-2 5 season) 2025 INFLUENZA VACCINE (#1) 2025 HIB VACCINE Aged Out No longer eligi ble based on patient's age to complete this topic HPV VACCINE Aged Out No longer eligi ble based on patient's age to complete this topic MENINGOCOCCAL (Group B) VACC INE SHARED DECISION-MAKING Aged Out No longer eligibl e based on patient's age to complete this topic MENINGOCOCCAL GROUPS A/C/Y/W VACCINE Aged Out No longer eligible b ased on patient's age to complete this topic [facility] Care Teams Fha Underwriter Relationship Specialty Start Date End Date Frederic Valdez MD [address] [place] [id number] PCP - General 06/17/20
== END 2025-04-04 08:22 | disposition home or self-care (01) ==
LOC: ANHFOHIMG 08:23
PROVIDERS: PCP Nurse Practitioner Family; Visit Provider Nurse Practitioner Family
DX: Z12.31 Encounter for screening mammogram for malignant neoplasm of breast (principal)
CPT/HCPCS: 77063; 77067